=== PATIENT | male | born 1945 | race Caucasian/White ===

== ENCOUNTER → 2017-01-04 20:03 | Outpatient (CLI) | payer MEDICARE, OTHER ==
[2011-12-14 16:02] VITALS: BMI 23.1
== END | disposition home or self-care (01) ==
LOC: D.MAMMO 10:30
DX: N63 Unspecified lump in breast (principal)

== ENCOUNTER 2018-02-08 07:41 | Outpatient (CLI) | payer MEDICARE, OTHER ==
[~2018-02-08] VITALS: Ht 172.7 cm; Wt 71.1 kg
--- NOTE | ~2018-02-08 | OP ---
PATIENT NAME: CHI NOVA MEDICAL RECORD: [id number] :43 LOCATION:D.M2 D.2119 ADMISSION DATE: SURGEON: LASHELL CRAWFORD MD DATE OF OPERATION: 02/08/2018 DATE OF SERVICE: 02/08/2018 PROCEDURES: 1. PTCA stent of RCA. 2. Intravascular ultrasound of RCA. 3. Left heart catheterization. 4. Selective coronary angiography. 5. Left ventriculogram. INDICATION: Angina and coronary artery disease. PROCEDURE PERFORMED: After informed consent was obtained and after the detailed description of risks, benefits as well as alternative therapies, the patient elected to proceed with angiogram and angioplasty. The right radial area was prepped and draped in normal sterile fashion. Right radial artery was cannulated via modified Seldinger technique with placement of 6-Romanian sheath. All catheters exchanged through this sheath. FINDINGS: The left ventriculogram was performed in standard 30-degree JIMENEZ view, reveals good cardiac wall motion throughout all segments. Overall ejection fraction is estimated at 60%. SELECTIVE CORONARY ANGIOGRAPHY: 1. Left main showed no significant angiographic disease. 2. Left anterior descending has mild irregularities, but no flow-limiting stenosis. 3. The left circumflex has mild irregularities, but no flow-limiting stenosis. 4. Right coronary has greater than 80% stenosis in the mid vessel confirmed by intravascular ultrasound. PTCA STENT OF THE RIGHT CORONARY: The stent used 3.5 x 26 mm Integrity. Result was 0% residual stenosis. OVERALL IMPRESSION: Successful percutaneous transluminal coronary angioplasty stent of the right coronary artery going from greater than 80% initial stenosis to 0% residual. TRANSINT:[id number] Voice Confirmation ID: [id number] DOCUMENT ID: [id number] LASHELL CRAWFORD MD at 2002 CC: [id number] DICTATION DATE: 02/08/18 1131 YARD ASSOCIATE: 02/08/18 [address] [place] [address]
--- NOTE | ~2018-02-08 | DS ---
PATIENT:CHI NOVA :43 MEDICAL RECORD: [id number] DISCHARGE SUMMARY ADMISSION DATE: 02/08/18 DISCHARGE DATE: 02/09/18 DISCHARGE DIAGNOSES: 1. Angina. 2. Coronary artery disease. 3. Percutaneous transluminal coronary angioplasty stent right coronary artery this admission. HOSPITAL COURSE: Mr. Nova presents with anginal symptomatology, found to have single vessel disease of the RCA, underwent successful PTCA stent of the RCA. He was discharged home with the addition of aspirin and Plavix to his medication and follow up with [facility] in 1 month. TRANSINT:[id number] Voice Confirmation ID: [id number] DOCUMENT ID: [id number] LASHELL CRAWFORD MD at 1741 CC: [id number] DICTATION DATE: 02/09/18937 REGENERATOR OPERATOR: 02/09/18 1348 DEP CLI 02/09/18 [address] [place] [address]
--- NOTE | ~2018-02-08 | HEMODYNAMI ---
PATIENT:CHI NOVA MEDICAL RECORD: [id number] : 43 LOCATION:[facility] ADMISSION DATE: 02/08/18 Generatedon:02/08/201811:34 Patient name: CHI NOVA Patient #: [id number] SSN: : 1945 Date of study: 02/08/2018 Page: Of Hemodynamic Procedure Report Patient Data Patient Demographics Procedure consent was obtained First Name: CHI Gender: Male Last Name: ROHINI : 1945 Middle Initial: M Age: 72 year(s) Patient #: [id number] Race: Unknown Additional ID: [id number] Contact details [address]: [address] [place] [address] State: [place] City: [place] Zip code: [address] Admission Admission Data Admission Date: 02/08/2018 Admission Time: 7:41 Procedure Procedure Types Cath Procedure Diagnostic Procedure LHC LHC w/Coronaries FFR/IVUS Intra-Coronary IVUS Initial Sedation Charges Moderate Sedation up to 15 minutes PCI Procedure Coronary Stent Coronary Stent Initial Procedure Description Procedure Date Procedure Date: 02/08/2018 Procedure Start Time: 11:04 Procedure End Time: 11:27 Procedure Staff Name Function Rogers Tovar MD Performing Physician Josefina Bowman RT Monitor Scott Shannon RT Scrub Dena Alonso RN Nurse Procedure Data Cath Procedure Fluoroscopy Diagnostic fluoroscopy Total fluoroscopy Time: 6.3 time: 6.3 min min Diagnostic fluoroscopy Total fluoroscopy dose: 532 dose: 532 mGy mGy Contrast Material Contrast Material Type Amount (ml) Isovue 300 82 Entry Location Entry Primary Successful Side Size Upsize Upsize Entry Closure Jones ccessful Closure Location (Fr) 1 (Fr) 2 (Fr) Remarks Device Remarks Radial Right 6 Fr Mechanical artery Short Compression Estimated blood loss: 5 ml Diagnostic catheters Device Type Used For End Catheter Placement DIAGNOSTIC Hollis 110cm 5 Multi-vessel Fr catheter ([id number]) Angiography DIAGNOSTIC AR 2 MOD 5 Fr Right Coronary catheter ([id number]) Angiography Procedure Complications No complications Procedure Medications Medication Administration Route Dosage Oxygen NC 2 l/min Lidocaine 2% added to field 20 Heparin Flush Bag added to field 2 bags (1000units/500ml NS) 0.9% NaCl I.V. 100 ml/hr Versed I.V. 1 mg Fentanyl I.V. 50 mcg Radial Cocktail I.A. 1 syringe (Verapomil 2mg/Nitro 400mcg/Heparin 1500units) Versed I.V. 1 mg Fentanyl I.V. 50 mcg Versed I.V. 1 mg Fentanyl I.V. 50 mcg Heparin Bolus I.V. 4000 units Integrilin (Bolus I.V. 6.8 ml 2mg/ml) Plavix P.O. 600 mg Hemodynamics Rest Heart Rate: 66 (bpm) Pressure Samples Time Site Value (mmHg) Purpose Heart Use Rate(bpm) 11:13 LV 108/62,86 Snapshot 83 Snapshots Pre Cath Intra NCS Post Cath Vital Signs Time Heart Resp SPO2 etCO2 NIBP (mmHg) Rhythm Pain Sedation Rate (ipm) (%) (mmHg) Status Level (bpm) 10:56:28 73 17 95 0 147/93(120) NSR 0 (11) 10(A) , No pain 11:00:24 63 17 93 0 138/78(109) NSR 0 (11) 10(A) , No pain 11:04:21 63 15 92 0 117/70(98) NSR 0 (11) 10(A) , No pain 11:08:44 61 15 96 9.7 129/76(104) NSR 0 (11) 9(A) , No pain 11:12:41 65 13 96 0 102/64(77) NSR 0 (11) 9(A) , No pain 11:16:37 65 13 93 0 103/60(79) NSR 0 (11) 9(A) , No pain 11:20:57 69 12 95 11.9 114/64(90) NSR 0 (11) 9(A) , No pain 11:25:19 68 14 95 33.7 126/71(95) NSR 0 (11) 10(A) , No pain Medications Time Medication Route Dose Verified Delivered Reason Note s Effectiveness by by 11:02:29 Oxygen NC 2 l/min Rogers Fernandes used for Guy Alonso outside plant technician 11:02:35 Lidocaine 2% added 20ml Rogers Fernandes used for to vial Guy Alonso RN procedure field 11:02:41 Heparin Flush added 2 bags Rogers Fernandes for local Bag to Guy Alonso RN anesthetic (1000units/500ml field NS) 11:02:49 0.9% NaCl I.V. 100 Rogers Fernandes Per physician ml/hr Guy Alonso RN 11:03:05 Versed I.V. 1 mg Rogers Fernandes for sedation Guy Alonso RN 11:03:11 Fentanyl I.V. 50 mcg Rogers Fernandes for sedation Guy Alonso RN 11:07:03 Radial Cocktail I.A. 1 Rogers Mccloud for (Verapomil syringe Guy Tovar MD vasodilation 2mg/Nitro 400mcg/Heparin 1500units) 11:11:21 Versed I.V. 1 mg Rogers Mccloud for sedation Guy Tovar MD 11:11:24 Fentanyl I.V. 50 mcg Rogers Mccloud for sedation Guy Tovar MD 11:19:33 Versed I.V. 1 mg Rogers Mccloud for sedation Guy Tovar MD 11:19:36 Fentanyl I.V. 50 mcg Rogers Mccloud for sedation Guy Tovar MD 11:22:13 Heparin Bolus I.V. 4000 Rogers Fernandes for veri fied units Guy Alonso RN anticoagulation with dr tovar 11:24:04 Integrilin I.V. 6.8 ml Rogers Fernandes for wast ed (Bolus 2mg/ml) Guy Alonso RN antiplatelet 3.2 ml therapy of vial 11:28:27 Plavix P.O. 600 mg Rogers Fernandes for Guy Alonso RN antiplatelet therapy Procedure Log Time Note 10:30:48 Dena Alonso RN sent for patient. Start room use. 10:43:26 Informed consent obtained and on chart 10:43:30 Diagnostic Cath Status : Elective 10:43:49 Time tracking: Regular hours (M-F 7:00 - 5:00) 10:43:53 Plan of Care:Hemodynamics will remain stable., Cardiac rhythm will remain stable., Comfort level will be maintained., Respiratory function will remain adequate., Patient/ family verbilizes understanding of procedure., Procedure tolerated without complication., Recovers from procedure without complications.. 10:55:36 Patient received from Pre/Post Procedure Room to CCL 2 Alert and oriented. Tansferred to table in Supine position. 10:55:38 Warm blankets applied, and ines hugger turned on for patient comfort. 10:55:38 Correct patient and procedure confirmed by team. 10:55:40 ECG and BP/O2 sat monitors applied to patient. 10:55:42 Vital chart was started 10:55:46 Baseline sample Acquired. 10:55:51 Rhythm: sinus rhythm 10:55:52 Full Disclosure recording started 10:55:57 H&P Date Dictated: 02/08/2018 Within 30 days and on chart., H&P Addendum completed by physician on day of procedure. (MUST COMPLETE FOR ALL OUTPATIENTS). 10:55:58 Pre-procedure instructions explained to patient. 10:55:59 Pre-op teaching completed and patient verbalized understanding. 10:56:00 Family in waiting room. 10:56:01 Patient NPO since Midnight. 10:56:02 Is the patient allergic to Iodine/contrast media? No. 10:56:03 Was the patient premedicated? No 10:56:04 Is patient on blood thinner?No 10:56:06 Patient diabetic? No. 10:56:09 Previous problem with sedation/anesthesia? No ? 10:56:10 Snore? No 10:56:11 Sleep apnea? No 10:56:12 Deviated septum? No 10:56:13 Opens mouth fully? No 10:56:14 Sticks out tongue? Yes 10:56:21 Airway obstruction? No ? 10:56:23 Dentures? No ? 10:56:27 Pre procedure: right dorsailis pedis pulse 2+ Normal; easily identifiable; not easily obliterated 10:56:30 Pre procedure: left dorsailis pedis pulse 2+ Normal; easily identifiable; not easily obliterated 10:56:32 Patient pain scale 0/10 ?. 10:56:39 IV patent on arrival in left forearm with 0.9% NaCl at O. 10:56:45 Lab results completed and on chart. 10:56:54 Right Radial & Right Groin area was prepped with chlora-prep and draped in sterile fashion 10:56:55 Alarms reviewed by R. N. 10:56:55 Sharps counted by scrub and verified by R.N. 10:57:03 Physician arrived 10:57:03 --------ALL STOP TIME OUT------ 10:57:04 Final Timeout: patient, procedure, and site verified with staff and physician. All members of the team are in agreement. 10:57:05 Right Radial & Right Groin site verified by team. 10:57:07 Physical assessment completed. ASA score P 2 - A patient with mild systemic disease as per Rogers Tovar MD. 10:57:11 Sedation plan: IV Moderate Sedation Medication:Versed, Fentanyl 10:58:58 Use device set Radial Dx or PCI 10:58:59 ACIST Syringe (44180) opened to sterile field. 10:58:59 Medline Cath Pack ([id number]) opened to sterile field. 10:59:00 Bag Decanter (2002S) opened to sterile field. 10:59:00 DIAGNOSTIC WIRE .035 260cm J wire (369734) opened to sterile field. 10:59:01 ACIST Hand Control (47147) opened to sterile field. 10:59:01 ACIST Manifold (48702) opened to sterile field. 10:59:02 Tegaderm 4 x 4 (1626W) opened to sterile field. 10:59:04 MBrace Wrist Support (686659432) opened to sterile field. 10:59:05 SHEATH 6Fr Prelude Radial ([id number]) opened to sterile field. 11:02:29 Oxygen 2 l/min NC was administered by Dena Alonso RN; used for procedure; 11:02:35 Lidocaine 2% 20ml vial added to field was administered by Dena Alonso RN; used for procedure; 11:02:41 Heparin Flush Bag (1000units/500ml NS) 2 bags added to field was administered by Dena Alonso RN; for local anesthetic; 11:02:49 0.9% NaCl 100 ml/hr I.V. was administered by Dena Alonso RN; Per physician; 11:03:05 Versed 1 mg I.V. was administered by Dena Alonso RN; for sedation; 11:03:11 Fentanyl 50 mcg I.V. was administered by Dena Alonso RN; for sedation; 11:04:42 Procedure started. 11:04:51 Local anesthetic to right radial artery with Lidocaine 2% by Rogers Tovar MD.INITIAL ACCESS ONLY 11:05:00 A 6 Fr Short sheath was inserted into the Right Radial artery 11:07:03 Radial Cocktail (Verapomil 2mg/Nitro 400mcg/Heparin 1500units) 1 syringe I.A. was administered by Rogers Tovar MD; for vasodilation; 11:09:48 A DIAGNOSTIC Hollis 110cm 5 Fr catheter (909733) was advanced over the wire and used for Multi-vessel Angiography. 11:11:21 Versed 1 mg I.V. was administered by Rogers Tovar MD; for sedation; 11:11:24 Fentanyl 50 mcg I.V. was administered by Rogers Tovar MD; for sedation; 11:13:27 LV hemodynamics recorded. 11:13:28 LV gram done using JIMENEZ 11:13:31 Injector settings: Ml/sec: 5, Volume: 15, 11:13:46 EF : 60 % 11:15:34 Catheter removed. 11:15:38 A DIAGNOSTIC AR 2 MOD 5 Fr catheter ([id number]) was advanced over the wire and used for Right Coronary Angiography. 11:15:50 RCA angiography performed. 11:15:53 Injector settings: Ml/sec: 3, Volume: 6, 11:15:55 Catheter removed. 11:16:06 GUIDE 6FR EBU 3.5 catheter ([id number]) opened to sterile field. 11:16:11 LCA angiography performed. 11:16:14 Injector settings: Ml/sec: 3, Volume: 6, 11:18:03 Catheter removed. 11:18:05 Proceeding to intervention. 11:18:17 GUIDE 6FR AR 2.0 catheter ([id number]) opened to sterile field. 11:18:20 INFLATOR Merit BasixCompak (UK7457) opened to sterile field. 11:18:34 Timblin [place] IVUS Catheter (47996B) opened to sterile field. 11:18:34 CHOICE PT Extra Support 182cm wire ([id number]) opened to sterile field. 11:18:42 6 Fr ar 2 guide catheter was inserted over the wire 11:18:46 choice pt wire advanced. 11:19:33 Versed 1 mg I.V. was administered by Rogers Tovar MD; for sedation; 11:19:36 Fentanyl 50 mcg I.V. was administered by Rogers Tovar MD; for sedation; 11:19:36 Wire advanced across lesion. 11:19:41 IVUS catheter advanced over wire. 11:22:13 Heparin Bolus 4000 units I.V. was administered by Dena Alonso RN; for anticoagulation; verified with dr tovar 11:23:28 IVUS pass to RCA lesion performed. 11::29 IVUS catheter removed over wire. 11:24:03 Place stent Inflation Number: 1 A INTEGRITY RX 3.5 x 26 stent ([id number]) was prepped and advanced across the Mid RCA. The stent was deployed at 15 BECK for 0:10 (min:sec). 11:24:04 Integrilin (Bolus 2mg/ml) 6.8 ml I.V. was administered by Dena Alonso RN; for antiplatelet therapy; wasted 3.2 ml of vial 11:24:17 Stent catheter was removed intact over wire. 11:24:18 Wire removed. 11:24:18 Guide catheter removed. 11:24:24 TR BAND Standard ([id number]) opened to sterile field. 11:26:06 Sheath removed intact; hemostasis achieved with Mechanical Compression to the Right Radial artery. 11:26:08 Procedure ended.(Physican Out) 11:26:18 Fluoroscopy time 06.30 minutes. 11:26:22 Fluoroscopy dose: 532 mGy 11::22 Flurop Dose total: 532 11::40 Contrast amount:Isovue 300 82ml. 11:26:51 TR band inflated with 10cc of air. 11:26:54 Insertion/operative site no bleeding no hematoma. 11:27:00 Post right radial artery:stable 11:27:01 Post Procedure Pulses reassessed and unchanged 11:27:04 Post procedure rhythm: unchanged. 11:27:06 Estimated blood loss: 5 ml 11:27:08 Post procedure instruction explained to patient.Patient verbalizes understanding. 11:27:08 Patient needs reinforcement of post procedure teaching. 11:27:26 Procedure type changed to Cath procedure, Diagnostic procedure, LHC, [facility] w/Coronaries, FFR/IVUS, Intra-Coronary IVUS Initial, Sedation Charges, Moderate Sedation up to 15 minutes, PCI procedure, Coronary Stent, Coronary Stent Initial 11::27 Procedure and supply charges have been captured, reviewed, submitted and are correct. 11:27:31 Procedure Complication : No complications 11::33 Vital chart was stopped 11::33 See physician's report for complete and final results. 11:27:38 Report given to Pre/Post Procedure Room. 11::41 Patient transfered to Pre/Post Procedure Room with Stretcher. 11:27:49 Procedure ended. 11::49 Full Disclosure recording stopped 11::27 Plavix 600 mg P.O. was administered by Dena Alonso RN; for antiplatelet therapy; 11:28:47 ACC-PCI Only Patient was given prescriptions, or instructed by Rogers Tovar MD to start/continue the following medications upon discharge: Plavix 11:28:48 End room use (Document Last) Intervention Summary Intervention Notes Time ActionType Lesion and Equipment Action# Pressure Duration Attributes Used 11:24:03 Place stent Mid RCA INTEGRITY RX 1 15 00:10 3.5 x 26 stent ([id number]) Device Usage Item Name Manufacture Quantity Catalog Number Hospital Part Current M inimal Lot# / Charge Number Stock Stock Serial# Code ACIST Syringe Acist 1 93606 596204 191504 272579 2 0 (77794) Medical Systems Inc Medline Cath Cardinal 1 [id number] 956403 02622 830105 5 Pack Health (HYJH26452) Bag Decanter Microtek 1 2001S 696637 33341 194053 5 (2001S) Medical Inc. DIAGNOSTIC WIRE St [place] 1 894569 539096 790963 462977 3 0 .035 260cm J wire (809299) ACIST Hand Acist 1 11099 388488 576550 415059 5 Control (93540) Medical Systems Inc ACIST Manifold Acist 1 54537 908049 972162 385131 5 (04771) Medical Systems Inc Tegaderm 4 x 4 3M 1 1626W 306937 649150 109513 5 (1626W) MBrace Wrist Advanced 1 140-0250-00 546002 08324 476624 5 Support Vascular (164219131) Dynamics SHEATH 6Fr Merit 1 [id number] 512550 171656 149362 5 Prelude Radial Medical ([id number]) DIAGNOSTIC Terumo 1 40-5340 919154 826895 920112 5 Hollis 110cm 5 Fr catheter (904191) DIAGNOSTIC AR 2 Cardinal 1 150561H 712878 029132 305296 2 0 MOD 5 Fr Health catheter (162265L) GUIDE 6FR EBU Medtronic 1 [id number] 624583 27100 421114 3 3.5 catheter (RT6JHE89) GUIDE 6FR AR Medtronic 1 AD7SN17 344591 13552 901873 1 2.0 catheter (CU4ER01) INFLATOR Merit Merit 1 ON8136 509319 348270 508153 1 5 [place] [employer] Inc. Medical (EQ1057) Timblin Timblin 1 43434Y 456294 019535 349906 8 [place] IVUS Catheter (35236S) CHOICE PT Extra Tutor Key 1 [id number] 262540 281367 410527 5 Support 182cm Scientific wire ([id number]) INTEGRITY RX Medtronic 1 [id number] 359353 030342 616774 5 [id number] 3.5 x 26 stent ([id number]) TR BAND Terumo 1 AXW30-IUK 547163 008280 208015 4 0 Standard (BCX54OGA) Signature Audit [place] Stage Time Signature Unsigned Intra-Procedure 02/08/2018 Josefina Bowman 11:34:45 AM RT(R) Signatures Monitor : Josefina Bowman RT Signature : Date : Time : [address] [place] [address]
[2018-02-08] MEDS ORDERED: CARTIA XT180 MG PO (08:21)
[2018-02-08] MEDS ORDERED: FLOMAX0.4 MG PO (08:22)
[2018-02-08] MEDS ORDERED: NITROQUICK0.4 MG SL (08:22)
[2018-02-08] MEDS ORDERED: TENORMIN50 MG PO (08:23)
[2018-02-08] MEDS ORDERED: LIPITOR10 MG PO (08:23)
[2018-02-08 08:45] VITALS: BP 167/86; BMI 25.6
[2018-02-08 09:03] LABS: BASOPHILS 0 % (0-2); EOSINOPHILS 1.2 % (0-7); HEMATOCRIT 35.7 % (42.0-54.0); HEMOGLOBIN 11.9 g/dL (13.5-17.5); IMMATURE GRANULOCYTES 0.4 % (0-5); LYMPHOCYTES 11.3 % (15-50); MCH 32.5 pg (26.0-34.0); MCHC 33.3 g/dL (31.0-37.0); MCV 97.5 fL (80.0-100.0); MEAN PLATELET VOLUME 8.4 fL (7.4-10.4); MONOCYTES 9.2 % (2-11); NEUTROPHILS 77.9 % (40-80); PLATELET COUNT 177 10x3/uL (130-400); RBC 3.66 10x6/uL (4.20-6.10); RDW 13.4 % (11.5-14.5); WBC 5.7 10x3/uL (4.8-10.8)
[2018-02-08 09:25] LABS: CALC OSMOLALITY 273 mosm/kg (275-300); CALCIUM 8.7 mg/dL (8.5-10.1); CARBON DIOXIDE 25.6 mmol/L (21.0-32.0); CHLORIDE - SERUM 101 mmol/L (98-107); CREATININE - SERUM 0.8 mg/dL (0.6-1.3); GLUCOSE 84 mg/dL (74-106); POTASSIUM - SERUM 4.6 mmol/L (3.5-5.1); SODIUM 138 mmol/L (136-145); UREA NITROGEN 11 mg/dL (7-18); eGFR NON AFRICAN AMERICAN > 90 mL/min (90-120)
[2018-02-08 12:02] VITALS: BP 151/75; Ht 172.7 cm; Wt 71.1 kg
[2018-02-08 15:38] VITALS: BP 123/65
[2018-02-08 20:33] VITALS: BP 150/83
[2018-02-09 00:46] VITALS: BP 126/84
[2018-02-09 05:43] VITALS: BP 161/79
[2018-02-09 08:49] VITALS: BP 167/89
== END 2018-02-09 14:22 | disposition home or self-care (01) ==
LOC: D.CATH 07:41 → D.M2 11:39 → D.CATH 02-09 14:22
PROVIDERS: Internal Medicine Interventional Cardiology
DX: I25.119 Atherosclerotic heart disease of native coronary artery with unspecified angina pectoris (principal); Z01.812 Encounter for preprocedural laboratory examination

== ENCOUNTER 2020-12-05 10:26 | Inpatient (IN) | payer MEDICARE, OTHER ==
[~2020-12-05] VITALS: Ht 172.7 cm; Wt 59.0 kg
[~2020-12-05 10:26] MED LIST: CARTIA XT180 MG PO; FLOMAX0.4 MG PO; LIPITOR10 MG PO; NITROQUICK0.4 MG SL; TENORMIN50 MG PO
[2020-12-05] MEDS ORDERED: EZFE 200200 MG PO (10:38)
[2020-12-05] MEDS ORDERED: VITAMIN B-12500 MCG PO (10:38)
[2020-12-05] MEDS ORDERED: PROTONIX20 MG PO (10:38)
[2020-12-05 11:20] LABS: BASOPHILS 0.1 % (0-2); EOSINOPHILS 0.2 % (0-7); HEMATOCRIT 25.7 % (42.0-54.0); IMMATURE GRANULOCYTES 0.1 % (0-5); LYMPHOCYTES 6.3 % (15-50); MCHC 31.1 g/dL (31.0-37.0); MCV 96.3 fL (80.0-100.0); MEAN PLATELET VOLUME 8.3 fL (7.4-10.4); MONOCYTES 5.6 % (2-11); NEUTROPHIL ABS# 8.36 10x3/uL (1.78-5.38); NEUTROPHILS 87.7 % (40-80); RBC 2.67 10x6/uL (4.20-6.10); RDW 17.8 % (11.5-14.5); WBC 9.5 10x3/uL (4.8-10.8)
[2020-12-05 11:21] LABS: PLATELET COUNT 262 10x3/uL (130-400)
[2020-12-05 11:43] LABS: APTT 40.6 SECONDS (22.8-39.4); INR 1.32 (0.85-1.17); PROTIME 15.1 SECONDS (11.6-15.0)
[2020-12-05 11:46] LABS: CALC OSMOLALITY 272 mosm/kg (275-300); CARBON DIOXIDE 31.1 mmol/L (21.0-32.0); CHLORIDE - SERUM 96 mmol/L (98-107); CREATININE - SERUM 0.9 mg/dL (0.6-1.3); GLUCOSE 101 mg/dL (74-106); POTASSIUM - SERUM 3.3 mmol/L (3.5-5.1); SODIUM 135 mmol/L (136-145); UREA NITROGEN 20 mg/dL (7-18); eGFR NON AFRICAN AMERICAN 87 mL/min (90-120)
[2020-12-05 12:03] LABS: ALBUMIN 2.3 g/dL (3.4-5.0); ALKALINE PHOSPHATASE 71 U/L (30-120); ALT (SGPT) 60 U/L (10-68); BILIRUBIN - TOTAL 0.65 mg/dL (0.2-1.3); CKMB 0.3 U/L (0.0-3.6); CREATINE KINASE 47 UL (21-232); PROTEIN - SERUM 7.3 g/dL (6.4-8.2); TROPONIN-I < 0.017 ng/mL (0.000-0.060)
[2020-12-05 13:28] VITALS: BP 112/66
[2020-12-05 15:07] VITALS: BP 118/68; BMI 19.8
--- NOTE | 2020-12-05 15:15 | NUR ---
PATIENT TO UNIT VIA WHEELCHAIR. SISTER AT BEDSIDE. PATIENT ON 2 LITERS NASAL CANNULA. [place] ALARM ON. ANSWERS QUESTIONS APPROPRIATELY. BED LOW POSITION, CALL LIGHT IN REACH. WILL CONTINUE TO MONITOR.
--- NOTE | 2020-12-05 15:36 | NUR ---
SPOKE TO DR. GONZALEZ ABOUT MEDICATION RECONCILLIATION BEING COMPLETED.
[2020-12-05 17:43] VITALS: BP 89/49
--- NOTE | 2020-12-06 01:00 | NUR ---
PT UNABLE TO VOID. STATES HE HASN'T VOIDED SINCE [employer] SUPERVIS[employer]. PT TAKES TAMSULOSIN AT HOME BUT HAS NOT HAD IT TODAY. BLADDER SCAN SHOWED 400+. CALLED DR. GONZALEZ. ORDER TO RESTART TAMSULOSIN, INSERT SANTIAGO CATHETER AND COLLECT URINE UA/CULTURE. PT VOIDED 250 MLS IN URINAL BEFORE SANTIAGO INSERTION. SCANNED BLADDER POST VOID FOR 401 MLS RESIDUAL LEFT IN BLADDER. PLACED SANTIAGO CATHETER AND RECEIVED 400 MLS SO FAR. COLLECTED SPECIMEN AND SENT TO LAB. PT TO START MEDS IN MORNING. NO OTHER NEEDS. WILL REASSESS AND CONTINUE TO MONITOR.
[2020-12-06 03:15] LABS: BILIRUBIN NEGATIVE (NEGATIVE); KETONE NEGATIVE (NEGATIVE); NITRITE NEGATIVE (NEGATIVE); UROBILINOGEN NORMAL mg/dL (< 2)
[2020-12-06 06:01] LABS: BASOPHILS 0 % (0-2); EOSINOPHILS 1.4 % (0-7); HEMATOCRIT 20.6 % (42.0-54.0); IMMATURE GRANULOCYTES 0.2 % (0-5); LYMPHOCYTE ABS# 0.38 10x3/uL (1.32-3.57); LYMPHOCYTES 6.7 % (15-50); MCH 29.8 pg (26.0-34.0); MCHC 31.1 g/dL (31.0-37.0); MCV 95.8 fL (80.0-100.0); MONOCYTES 5.7 % (2-11); NEUTROPHIL ABS# 4.86 10x3/uL (1.78-5.38); RBC 2.15 10x6/uL (4.20-6.10); RDW 17.6 % (11.5-14.5)
[2020-12-06 06:10] LABS: HEMOGLOBIN 6.4 g/dL (13.5-17.5); PLATELET COUNT 208 10x3/uL (130-400); WBC 5.7 10x3/uL (4.8-10.8)
[2020-12-06 06:33] LABS: ALBUMIN 1.8 g/dL (3.4-5.0); ALKALINE PHOSPHATASE 58 U/L (30-120); ALT (SGPT) 71 U/L (10-68); BILIRUBIN - TOTAL 0.27 mg/dL (0.2-1.3); CALCIUM 7.8 mg/dL (8.5-10.1); CHLORIDE - SERUM 103 mmol/L (98-107); GLUCOSE 111 mg/dL (74-106); SODIUM 137 mmol/L (136-145)
[2020-12-06 06:54] LABS: CALC OSMOLALITY 273 mosm/kg (275-300); CREATININE - SERUM 0.6 mg/dL (0.6-1.3); POTASSIUM - SERUM 3.9 mmol/L (3.5-5.1); PROTEIN - SERUM 5.2 g/dL (6.4-8.2); UREA NITROGEN 10 mg/dL (7-18); eGFR NON AFRICAN AMERICAN > 90 mL/min (90-120)
--- NOTE | 2020-12-06 07:00 | NUR ---
CALLED CRITICAL [facility] [address] GONZALEZ. ORDERED 1 UNIT PRBC'S TO BE TRANSFUSED. ONCOLOGY CONSULTED - DR. WOOTEN ROUNDED THIS AM.
[2020-12-06 08:52] VITALS: BP 123/73
--- NOTE | 2020-12-06 08:59 | NUR ---
PT IS AAO X 4 AND ANSWERS ALL QUESTIONS APPROPRIATLEY. PT INFORMED ON BLOOD/BLOOD PRODUCTS AND DENIES FURTHER QUESTIONS/CONCERNS AT THIS TIME. BLOOD CONSENT SIGNED BY PATIENT AND PLACED IN PT CHART. BED IS IN THE LOWEST POSITION. CALL LIGHT AND BEDSIDE TABLE ARE WITHIN REACH. SIDE RAILS X 2. WILL NOTIFY SHIFT NURSE.
--- NOTE | 2020-12-06 10:15 | NUR ---
PT RESTING QUIETLY IN BED. RESP EVEN AND UNLABORED. DENIES PAIN AT THIS TIME. IV TO RIGHT WRIST WITH D51/2 NS W/ 20KCL @ 100ML/HR INFUSING VIA PUMP. SITE WITHOUT REDNESS OR EDEMA. F/C PATENT TO GRAVITY DRAINING CLEAR YELLOW URINE. DENIES FURTHER NEEDS AT THIS TIME. CL WITHIN REACH. CONTINUE POC. STRICT NPO FOR ASPIRATION PRECAUTIONS
--- NOTE | 2020-12-06 10:25 | NUR ---
UNIT (1) OF PRBC TRANSFUSION INITIATED. SIGNED BLOOD CONSENT IN PT CHART. VSS. SEE TRANSFUSION CARD. PRBC INFUSING TO RIGHT WRIST PIV WITHOUT DIFFICUTLY/COMPROMISE. PT DENIES FURTHER QUESTIONS/CONCERNS/NEEDS. WILL STAY IN ROOM FOR FIRST 15 MINUTES OF TRANSFUSION TO MONITOR CLOSELY. FALL PRECAUTIONS IN PLACE. BED IS IN THE LOWEST POSITION. CALL LIGHT AND BEDSIDE TABLE ARE WITHIN REACH. SIDE RAILS X 2. PRBC UNIT VERIFIED WITH JAKE RODRIGUES RN.
--- NOTE | 2020-12-06 10:40 | NUR ---
UNIT (1) [RBC INFUSING WITHOUT DIFFICULTY/COMPROMISE. VSS. SEE TRANSFUSION CARD. NO APPARENT S/S OF DISTRESS NOTED. PT DENIES PRESENCE OF N/V/DYSPNEA/SOB AT THIS TIME. ALL FALL PRECAUTIONS IN PLACE. BED IS IN THE LOWEST POSITION. CALL LIGHT AND BEDSIDE TABLE ARE WITHIN REACH. SIDE RAILS X 2. PT DENIES FURTHER NEEDS. WILL NOTIFY SHIFT NURSE.
[2020-12-06 12:48] VITALS: BP 124/71
--- NOTE | 2020-12-06 13:39 | HP ---
PATIENT: [facility] MEDICAL RECORD: [id number] ACCOUNT: [id number] LOCATION:D.[id number] : 43 ADMISSION DATE: 12/05/20 PCP: KENN HARRIS MD HISTORY AND PHYSICAL EXAMINATION REASON FOR ADMISSION: Cough, congestion, trouble swallowing. HISTORY OF PRESENT ILLNESS: The patient is a 75-year-old male who was diagnosed in June 2020 with right-sided throat cancer. He was biopsied by Dr. Hilario Turner in [place] and underwent chemotherapy and just finished 35 treatments of radiation therapy with Dr. Rosas at [facility]. His sister, who is his current chest painting leader states he has been having increasing trouble with copious amount of mucus that he is coughing and making difficult for him to swallow. He has lost about 12 pounds since radiation was initiated. He began coughing more and came to the ED. He said Dr. Turner had recommended that he have a G-tube placed preradiation, but the radiation therapy physician advised against it. Nonetheless, he is not handling his fluids well, coughing quite a bit, and came to the ED where he was found to be mildly tachypneic with a pO2 of 93, CO2 of 37, pH of 7.537. He has not had fever, but his chest x-ray does show left lower lobe infiltrate versus atelectasis and scarring in the left upper lobe. He is admitted at this time. PAST MEDICAL HISTORY: Coronary artery disease, followed by Dr. Tovar. He has had PTCA in the past, history of esophageal stricture plus recent dilatation by Dr. Arteaga and negative biopsies. Colonoscopy in 2016 showing diverticula and 2 small polyps that were benign. BPH, probable COPD from smoking, carotid artery disease, asymptomatic hypertension, hyperlipidemia, cancer of the throat as mentioned above. SURGICAL HISTORY: He had biopsy of his throat mass. He has had a cataract surgery in 2013, history of hernia repair, tonsillectomy remotely. FAMILY HISTORY: Father of bone cancer. Mother of colon and breast cancer and had melanoma as well. 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 He smoked 20+ years, 1 pack a day and had moderate alcohol consumption, none recently. ALLERGIES: TO QUINAPRIL CAUSING ANGIOEDEMA. CURRENT MEDICATIONS: Tamsulosin 0.4 mg daily, atorvastatin 10 mg at bedtime, ondansetron 4 mg p.o. q.4 hours for nausea, diltiazem ER 180 mg SR tablet daily, Wellbutrin SR 150 mg b.i.d., tramadol 50 mg q.6 hours p.r.n. pain, Nitrostat 0.4 sublingual p.r.n. chest pain, aspirin 81 mg daily, Protonix 20 mg p.o. daily. REVIEW OF SYSTEMS: GENERAL: He has been fatigued since chemo and radiation therapy, he has lost about 12 pounds. Denies fever. HEENT: No recent visual change, sinus congestion. He has intermittent sore throat and trouble handling a large amount of mucus. He is producing post-radiation. Mild hearing difficulty. RESPIRATORY: He has had increased shortness of breath for the last couple of days with increasing cough. Denies hemoptysis. CARDIAC: No palpitations, PND, orthopnea, or chest pain. HISTORY AND PHYSICAL [id number] [facility] GASTROINTESTINAL: He has intermittent nausea and no recent vomiting, although does expectorate quite a bit of mucus throughout the day. Denies change in stools or blood per rectum. Had colonoscopy as mentioned above and recent EGD. GENITOURINARY: He has nocturia twice nightly. ENDOCRINE: Denies polyuria, polydipsia, heat or cold intolerance. NEUROLOGIC: No history of stroke, TIA, vascular headaches or seizures. PSYCHIATRIC: Denies depressed mood. INTEGUMENT: No recent rash or itching. PHYSICAL EXAMINATION: VITAL SIGNS: Temperature 97 Fahrenheit orally; pulse 82 and regular; respirations were 20; blood pressure initially was 81/52, it is now 112/56 with a sat of 98% on 2 liters. GENERAL: The patient is mildly cachectic. HEENT: Shows normal male pattern balding. His eyes were clear. Palpebral conjunctiva is pale. Oropharynx shows mild erythema posteriorly on the right. NECK: No masses are felt. CHEST: Distant breath sounds without wheeze or rales. He is constantly coughing, however. HEART: Regular rate without murmur. Carotids faint bruits bilaterally. ABDOMEN: Soft, nontender, no organomegaly. GENITOURINARY: Deferred. EXTREMITIES: No CC&E. INTEGUMENT: No icterus or petechiae. NEUROLOGIC: Oriented time 4. Cranial nerves intact. Gait is evaluation. Although, he does show some quads weakness. PSYCHIATRIC: Denies depressed mood or suicidal ideation. LABORATORY DATA: H&H is 8 and 25.7, his hemoglobin in June was 11 and hematocrit was 33. White count was 9500, platelet count is 262,000 with a left shift. Chemistry: Potassium is low at 3.3. BUN and creatinine are normal. Lactate is 1.6. Liver functions are normal. Cardiac enzymes are negative. Albumin is low at 2.3. Blood gas; pH 7.537, pCO2 of 38, pO2 of 93 on 2 liters. Urine is pending. DIAGNOSTIC DATA: Chest x-ray shows scarring in the left upper lobe, patchy left lower basilar airspace disease noted. ASSESSMENT: 1. Possible aspiration pneumonia. 2. 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 3. Hypokalemia due to gastrointestinal losses. 4. Malnutrition. 5. Weight loss. 6. Hypertension, currently hypotensive, hyperlipidemia, history of MAGGIE intolerance, history of remote nicotine abuse, probable chronic obstructive pulmonary disease, and benign prostatic hyperplasia. 7. Anemia. PLAN: The patient will be admitted n.p.o., placed on broad-spectrum IV antibiotics. We will obtain swallow evaluation. The patient will most likely need PEG tube until his post-radiation therapy swallowing issues resolve. His sister who is going to have to go back to [facility] for about a month and he will need rehabilitation in the interim with hopes to get admitted to HISTORY AND PHYSICAL [id number] [facility] re[facility] once he is over his acute admission until they can return home to care for him. We will transfuse if indicated. We will have hematology/oncology consultation with his oncologist, Dr. Donald Beckman. TRANSINT:[id number] Voice Confirmation ID: [id number] DOCUMENT ID: [id number] CECE GONZALEZ MD at 1339 CC: [id number] DICTATION DATE: 12/05/20 1413 SCIENCES DEAN: 12/05/20 1528 ADM IN [place] [id number] [place] [address]
[2020-12-06 13:57] VITALS: Ht 172.7 cm; Wt 59.0 kg
[2020-12-06 16:51] VITALS: BP 131/76
[2020-12-06 20:00] VITALS: BP 144/77
[2020-12-07] VITALS: BP 137/76
[2020-12-07 04:00] VITALS: BP 132/73
--- NOTE | 2020-12-07 06:42 | NUR ---
PATIENT TOLERATED THE LAST UNIT OF BLLOD WELL, HE APPEARED TO SLEEP THROUGH THE NIGHT.
[2020-12-07 07:12] LABS: BASOPHILS 0 % (0-2); EOSINOPHILS 2.1 % (0-7); IMMATURE GRANULOCYTES 0.4 % (0-5); LYMPHOCYTE ABS# 0.32 10x3/uL (1.32-3.57); LYMPHOCYTES 6.6 % (15-50); MCH 29.1 pg (26.0-34.0); MCHC 32.3 g/dL (31.0-37.0); MEAN PLATELET VOLUME 8.5 fL (7.4-10.4); MONOCYTES 10.6 % (2-11); NEUTROPHIL ABS# 3.87 10x3/uL (1.78-5.38); NEUTROPHILS 80.3 % (40-80); PLATELET COUNT 233 10x3/uL (130-400); WBC 4.8 10x3/uL (4.8-10.8)
[2020-12-07 07:20] LABS: CALC OSMOLALITY 264 mosm/kg (275-300); CALCIUM 8.2 mg/dL (8.5-10.1); CARBON DIOXIDE 24.6 mmol/L (21.0-32.0); CHLORIDE - SERUM 101 mmol/L (98-107); CREATININE - SERUM 0.5 mg/dL (0.6-1.3); GLUCOSE 88 mg/dL (74-106); SODIUM 134 mmol/L (136-145); eGFR NON AFRICAN AMERICAN > 90 mL/min (90-120)
[2020-12-07 07:22] LABS: HEMATOCRIT 28.2 % (42.0-54.0); HEMOGLOBIN 9.1 g/dL (13.5-17.5); MCV 90.1 fL (80.0-100.0); RBC 3.13 10x6/uL (4.20-6.10)
[2020-12-07 07:24] LABS: UREA NITROGEN 7 mg/dL (7-18)
--- NOTE | 2020-12-07 08:28 | NUR ---
PT RESTING QUIETLY IN BED. RESP EVEN AND UNLABORED. O2 @ 2L NC IN PLACE. PT DENIES PAIN AT THIS TIME. IV TO RIGHT FOREARM WITH D5 1/2NS W/ 20KCL @ 100ML/H INFUSING VIA PUMP. SITE WITHOUT REDNESS OR EDEMA. F/C PATENT TO GRAVITY. DENIES FURTHER NEEDS AT THIS TIME. CL WITHIN REACH. ENCOURAGED TO CALL WITH NEEDS. CONTINUE POC
[2020-12-07 09:03] VITALS: BP 140/79
[2020-12-07 14:12] VITALS: BP 134/75
[2020-12-07 17:56] VITALS: BP 133/76
[2020-12-07 20:00] VITALS: BP 120/76
[2020-12-08 04:00] VITALS: BP 134/89
--- NOTE | 2020-12-08 04:32 | NUR ---
PATIENT HAS SLEPT MOST OF THE SHIFT, HE DENIED PAIN, HE REMAINS NPO. HE IS CURRENTLY RESTIN IN BED WITH HIS EYES CLOSED.
[2020-12-08 07:19] LABS: BASOPHILS 0.2 % (0-2); EOSINOPHILS 1.2 % (0-7); HEMATOCRIT 29.9 % (42.0-54.0); HEMOGLOBIN 9.6 g/dL (13.5-17.5); IMMATURE GRANULOCYTES 0.2 % (0-5); LYMPHOCYTE ABS# 0.47 10x3/uL (1.32-3.57); LYMPHOCYTES 11.5 % (15-50); MCH 29.5 pg (26.0-34.0); MCHC 32.1 g/dL (31.0-37.0); MEAN PLATELET VOLUME 8.4 fL (7.4-10.4); MONOCYTES 8.1 % (2-11); NEUTROPHILS 78.8 % (40-80); PLATELET COUNT 218 10x3/uL (130-400); RBC 3.25 10x6/uL (4.20-6.10); RDW 17.6 % (11.5-14.5); WBC 4.1 10x3/uL (4.8-10.8)
--- NOTE | 2020-12-08 07:30 | NUR ---
RECIEVED BEDSIDE REPORT. BED LOW POSITION, CALL LIGHT IN REACH. FREE FROM SIGNS OF DISTRESS. WILL CONTINUE TO MONITOR.
[2020-12-08 07:39] LABS: CALC OSMOLALITY 266 mosm/kg (275-300); CALCIUM 8.6 mg/dL (8.5-10.1); CHLORIDE - SERUM 102 mmol/L (98-107); CREATININE - SERUM 0.5 mg/dL (0.6-1.3); GLUCOSE 111 mg/dL (74-106); POTASSIUM - SERUM 4.1 mmol/L (3.5-5.1); SODIUM 134 mmol/L (136-145); UREA NITROGEN 6 mg/dL (7-18); eGFR NON AFRICAN AMERICAN > 90 mL/min (90-120)
--- NOTE | 2020-12-08 08:22 | NUR ---
PATIENT LEFT UNIT VIA BED TO PROCEDURE AT THIS TIME.
[2020-12-08 13:28] VITALS: BP 135/85
[2020-12-08 17:47] VITALS: BP 116/79
[2020-12-08 20:00] VITALS: BP 119/71
--- NOTE | 2020-12-09 03:44 | NUR ---
PATIENT HAD PAIN MANAGED WITH THE PRESCRIBED PAIN MEDICATION, HE APPEARES TO BE RESTING COMFORTABLY WITH HIS EYES CLOSED.
[2020-12-09 04:00] VITALS: BP 127/73
[2020-12-09 06:49] LABS: ALBUMIN 1.9 g/dL (3.4-5.0); ALKALINE PHOSPHATASE 57 U/L (30-120); ALT (SGPT) 84 U/L (10-68); BILIRUBIN - TOTAL 0.36 mg/dL (0.2-1.3); CALC OSMOLALITY 264 mosm/kg (275-300); CALCIUM 8.1 mg/dL (8.5-10.1); CARBON DIOXIDE 17.8 mmol/L (21.0-32.0); CHLORIDE - SERUM 101 mmol/L (98-107); CREATININE - SERUM 0.5 mg/dL (0.6-1.3); GLUCOSE 101 mg/dL (74-106); POTASSIUM - SERUM 4.5 mmol/L (3.5-5.1); PROTEIN - SERUM 5.5 g/dL (6.4-8.2); SODIUM 134 mmol/L (136-145); UREA NITROGEN 5 mg/dL (7-18); eGFR NON AFRICAN AMERICAN > 90 mL/min (90-120)
--- NOTE | 2020-12-09 07:49 | NUR ---
RECIEVED BEDSIDE RPEORT. IN BED, AROUSES TO VOICE. DENIES NEEDS AT THIS TIME. BED LOW POSITION, CALL LIGHT IN REACH. BED ALARM ON, ORIANA ALARM ON. WILL CONTINUE TO MONITOR.
[2020-12-09 07:58] LABS: BASOPHILS 0.2 % (0-2); EOSINOPHILS 1.5 % (0-7); HEMATOCRIT 28.3 % (42.0-54.0); HEMOGLOBIN 9.1 g/dL (13.5-17.5); IMMATURE GRANULOCYTES 0.4 % (0-5); LYMPHOCYTES 10.8 % (15-50); MCH 29.3 pg (26.0-34.0); MCHC 32.2 g/dL (31.0-37.0); MEAN PLATELET VOLUME 8.6 fL (7.4-10.4); MONOCYTES 13.8 % (2-11); NEUTROPHILS 73.3 % (40-80); PLATELET COUNT 205 10x3/uL (130-400); RBC 3.11 10x6/uL (4.20-6.10); RDW 17.2 % (11.5-14.5); WBC 4.6 10x3/uL (4.8-10.8)
[2020-12-09 09:18] VITALS: BP 144/85
--- NOTE | 2020-12-09 12:00 | NUR ---
SANTIAGO CATHETER REMOVED PER MD ORDER.
[2020-12-09 12:37] VITALS: BP 132/84
--- NOTE | 2020-12-09 13:18 | NUR ---
Nutrition follow-up: Pt POD#1 of PEG placement Continues NPO Labs reviewed Wt: 129# Recommend starting Jevity 1.5 mark anthony @ 25 ml/hr with gradual increase to goal rate of 50 ml/hr with 30 ml H2O flush q hour. When pt is tolerating continuos TF at goal rate for 3-4 days, recommend changing to bolus feeds of 5 cartons per day (1 can q 3 hours during waking hours with 75 ml H2O flush before and after each can) Will place order for TF to start when consult is received. RDN follow-up: 12/10/20
[2020-12-09 16:46] VITALS: BP 120/77
[2020-12-09 20:00] VITALS: BP 122/87
[2020-12-10] VITALS: BP 129/69
--- NOTE | 2020-12-10 00:26 | NUR ---
PT ON SIDE OF THE BED HE REQUEST TO GET HELP TO THE BATHROOM AND HAS BEEN ASKING ABOUT WHY HE IS IN THE HOSPITAL. PT IS VERY CONFUSE TO TIME AND PLACE. PT WANTS TO GET HIS SON TO COME TO GET HIM AND TAKE HIM HOME HE WAS EXPLAINED THE SITUATION WITH LITTLE UNDERSTANDING. PT WILL CONT TO GET MONITORED.
--- NOTE | 2020-12-10 01:29 | NUR ---
PT UP ALARM IN PLACE PT REMOVE HIS IV ATTEMPT TO GET NEW PT REFUSE WILL TRY AGAIN IN A FEW HOURS.
[2020-12-10 04:00] VITALS: BP 130/76
[2020-12-10 06:04] LABS: BASOPHILS 0 % (0-2); HEMATOCRIT 30.1 % (42.0-54.0); HEMOGLOBIN 9.6 g/dL (13.5-17.5); IMMATURE GRANULOCYTES 0.7 % (0-5); LYMPHOCYTE ABS# 0.56 10x3/uL (1.32-3.57); MCH 29.4 pg (26.0-34.0); MCHC 31.9 g/dL (31.0-37.0); MCV 92.3 fL (80.0-100.0); MEAN PLATELET VOLUME 8.5 fL (7.4-10.4); MONOCYTES 10.6 % (2-11); NEUTROPHIL ABS# 3.14 10x3/uL (1.78-5.38); NEUTROPHILS 72.7 % (40-80); PLATELET COUNT 232 10x3/uL (130-400); RBC 3.26 10x6/uL (4.20-6.10); RDW 17.1 % (11.5-14.5); WBC 4.3 10x3/uL (4.8-10.8)
[2020-12-10 06:24] LABS: CALC OSMOLALITY 266 mosm/kg (275-300); CALCIUM 8.6 mg/dL (8.5-10.1); CHLORIDE - SERUM 101 mmol/L (98-107); CREATININE - SERUM 0.5 mg/dL (0.6-1.3); GLUCOSE 102 mg/dL (74-106); POTASSIUM - SERUM 4.4 mmol/L (3.5-5.1); SODIUM 135 mmol/L (136-145); UREA NITROGEN 4 mg/dL (7-18); eGFR NON AFRICAN AMERICAN > 90 mL/min (90-120)
[2020-12-10 06:36] LABS: CARBON DIOXIDE 23.6 mmol/L (21.0-32.0)
--- NOTE | 2020-12-10 07:02 | NUR ---
I have reviewed this patient and I concur with the Shift Assessment completed by the Licensed Practical Nurse today this shift.
--- NOTE | 2020-12-10 08:41 | NUR ---
Nutrition follow-up: PEG tube placed; verbal order to begin TF today received Last note recommended Jevity 1.5 mark anthony to begin; out of Jevity 1.5 mark anthony Starting Jevity 1.2 mark anthony @ 25 ml/hr with gradual increase to goal rate of 65 ml/hr with 30 ml H2O flush q hour. HOB > 30 degrees. Jevity 1.2 mark anthony @ 65 ml/hr with provide: 1872 kcal, 87 gm protein, 1260 ml free H2O This TF regimen will meet 100% of pts estimated nutritional needs. RDN will follow-up: 12/13/20
--- NOTE | 2020-12-10 08:45 | NUR ---
ASSESSMENT PER FLOW SHEET. PATIENT IS WITHOUT DISTRESS. TUBE FEEDINGS JEVITY 1.2 STARTED AT 25 CC/HR WITH 30CC WATER FLUSH Q1 HOUR AT 0830. FALL PREVENTION IN PLACE WITH ROIANA AND BED ALARM.CALL LIGHT IN REACH.
[2020-12-10 09:41] VITALS: BP 136/80
--- NOTE | 2020-12-10 09:45 | MORECARE ---
CASE MANAGEMENT DISCHARGE SUMMARY PATIENT: [facility] UNIT: [id number] ADM DATE: 12/05/20 AGE: 75 : 44 SEX: M ROOM/BED: D.2230 AUTHOR: DEBRA MONROY PHYSICIAN: REFERRING PHYSICIAN: CECE GONZALEZ MD DATE OF SERVICE: 12/10/20 Case Management Discharge Planning Summary DCP REVIEW SUMMARY ANTICIPATED D/C DATE: EXPECTED LOS : CASE STATUS: DCP Initiated INITIAL REVIEW: 12/05/2020 INITIAL REVIEWER: Lis Tang FINAL DISCHARGE DISPOSITION: 03 : Discharged/Trans to SNF with Medicare Certification in Anticipation of Skilled Care FINAL REVIEWER: FINAL REVIEW DATE: DCP Focus Questions & Answers DCP Screen QUESTION: ANSWER High Risk Factors: : Hosp related to CHF, COPD, DM, End Stage Ds, CVA, CA DCP Evaluation QUESTION: ANSWER Patient's ability to cope with chronic illness : a. Adequate (0-3 ED visits in 6 mos., adequate financial resources, attends scheduled appts.) Patient and/or caregiver agree upon recommended discharge plan? : Yes Patient's current cognitive status: : *Oriented to person, place, situation, time and present Patient gives permission to discuss discharge plans with: (name, relationship and number) : HENRIQUE COATES [phone] Does the patient have the ability to pay for or attain post discharge needs / services? : Yes Functional screen assessment: : New onset in difficulty in gait, balance, or transfer difficulties Family / Caregiver's ability to cope with chronic illness: : a. Adequate (ability to meet patient's medical needs, ensures patient attends medical appts.) Physical Status: : Independent with ADL's Equipment needed for post hospitalization: : Peg Tube feeding/maintenance Is there a likelihood that the patient will require additional services to return to the preadmission environment? : Yes Functional screen comments: : NEW PEG TUBE Living Arrangements: : Home Alone with Support Results of this evaluation have been discussed with: : Patient Patient with capacity for self-care or can be cared for in same environment as prior to hospitalization? : No Baseline cognitive status: : *Oriented to person, place, situation, time and present Comments: : WANTS TO GO TO [facility] Medication Management: : Patient states can afford medications Planned post hospital services available for patient? : Yes Pharmacy name(s): : [facility] Planned post hospital services covered by insurance plan? : Yes Does Patient have transportation to get home and to follow-up medical appointments when discharged from the hospital? : Yes Would patient like to participate in any Care Coordination programs (if applicable): : Not applicable Does the patient have electricity at home? : Yes Does the patient have running water in their house? : Yes Equipment in use: : Cane - Single Leg Equipment agency name and contact information: : [facility] [phone] Mental health screen: : No mental health history Abuse/Neglect: : None DCP Re-evaluation QUESTION: ANSWER Would patient like to participate in any Care Coordination programs (if applicable): : Not applicable PATIENT: [facility] ENCOUNTER: [id number] MEDICAL RECORD#: [id number] ADMISSION DATE: 12/05/2020 DISCHARGE DATE: ATTENDING MD: CECE ARMANDO : AGE: 75 MARITAL STATUS: S DC PLAN ID: [id number] FACILITY: [facility] PRINTED ON: 12/10/20 9:45 CT All edits/amendments must be made on the electronic document DICTATION DATE: 12/10/20944 DIESEL ENGINE MECHANIC APPRENTICE: LIMA 12/10/20944 RPT#: [id number] DC DATE: STATUS: ADM IN [facility] [address] [place] [address] END OF REPORT
--- NOTE | 2020-12-10 09:56 | MORECARE ---
CASE MANAGEMENT DISCHARGE SUMMARY PATIENT: [facility] UNIT: [id number] ADM DATE: 12/05/20 AGE: 75 : 44 SEX: M ROOM/BED: D.2230 AUTHOR: DEBRA MONROY PHYSICIAN: REFERRING PHYSICIAN: CECE GONZALEZ MD DATE OF SERVICE: 12/10/20 Case Management Discharge Planning Summary COMMENTS ENTERED DATE: 12/10/20 9:43 CT COMMENT TYPE: Discharge Planning REVIEWER: Lis Tang CM met with patient to complete initial dc planning assessment. CM educated patient on the CM role and verbal consent given by patient to complete assessment. Patient lives at home by himself where he is independent with his care. At discharge patient plans to return home when he is able and feels this is a safe discharge. He would like go to [facility] for senior living. I have sent the referral there . He is a new PEG tube with feeds. He has a cane at home. He is a patient of Dr Harper. and uses [facility]. JESSICA signed. Patient denied known discharge needs at this time. CM will continue to follow and will assist as needed with dc plans/needs. DCP REVIEW SUMMARY ANTICIPATED D/C DATE: EXPECTED LOS : CASE STATUS: DCP Initiated INITIAL REVIEW: 12/05/2020 INITIAL REVIEWER: Lis Tang FINAL DISCHARGE DISPOSITION: 03 : Discharged/Trans to SNF with Medicare Certification in Anticipation of Skilled Care FINAL REVIEWER: FINAL REVIEW DATE: DCP Focus Questions & Answers DCP Screen QUESTION: ANSWER High Risk Factors: : Hosp related to CHF, COPD, DM, End Stage Ds, CVA, CA DCP Evaluation QUESTION: ANSWER Patient's ability to cope with chronic illness : a. Adequate (0-3 ED visits in 6 mos., adequate financial resources, attends scheduled appts.) Patient and/or caregiver agree upon recommended discharge plan? : Yes Patient's current cognitive status: : *Oriented to person, place, situation, time and present Patient gives permission to discuss discharge plans with: (name, relationship and number) : HENRIQUE COATES [phone] Does the patient have the ability to pay for or attain post discharge needs / services? : Yes Functional screen assessment: : New onset in difficulty in gait, balance, or transfer difficulties Family / Caregiver's ability to cope with chronic illness: : a. Adequate (ability to meet patient's medical needs, ensures patient attends medical appts.) Physical Status: : Independent with ADL's Equipment needed for post hospitalization: : Peg Tube feeding/maintenance Is there a likelihood that the patient will require additional services to return to the preadmission environment? : Yes Functional screen comments: : NEW PEG TUBE Living Arrangements: : Home Alone with Support Results of this evaluation have been discussed with: : Patient Patient with capacity for self-care or can be cared for in same environment as prior to hospitalization? : No Baseline cognitive status: : *Oriented to person, place, situation, time and present Comments: : [facility] Medication Management: : Patient states can afford medications Planned post hospital services available for patient? : Yes Pharmacy name(s): : [facility] Planned post hospital services covered by insurance plan? : Yes Does Patient have transportation to get home and to follow-up medical appointments when discharged from the hospital? : Yes Would patient like to participate in any Care Coordination programs (if applicable): : Not applicable Does the patient have electricity at home? : Yes Does the patient have running water in their house? : Yes Equipment in use: : Cane - Single Leg Equipment agency name and contact information: : HENRIQUE COATES [phone] Mental health screen: : No mental health history Abuse/Neglect: : None DCP Re-evaluation QUESTION: ANSWER Would patient like to participate in any Care Coordination programs (if applicable): : Not applicable PATIENT: [facility] ENCOUNTER: [id number] MEDICAL RECORD#: [id number] ADMISSION DATE: 12/05/2020 DISCHARGE DATE: ATTENDING MD: CECE ARMANDO : AGE: 75 MARITAL STATUS: S DC PLAN ID: [id number] FACILITY: [facility] PRINTED ON: 12/10/20 9:55 CT All edits/amendments must be made on the electronic document DICTATION DATE: 12/10/20954 WINERY WORKER: LIMA 12/10/20954 RPT#: [id number] DC DATE: STATUS: ADM IN [facility] [address] [place] [address] END OF REPORT
[2020-12-10 12:58] VITALS: BP 115/78
--- NOTE | 2020-12-10 14:16 | NUR ---
tube feeds increased to 35cc /hr.
[2020-12-10 17:29] VITALS: BP 123/85
--- NOTE | 2020-12-10 18:04 | NUR ---
PATIENT REMAINS WITHOUT CHANGE. TOLERATING JEVITY FEEDING. HE IS WITHOUT DISTRESS.CONT PLAN OF CARE
[2020-12-10 21:12] VITALS: BP 129/83
[2020-12-11 01:14] VITALS: BP 108/66
[2020-12-11 05:56] VITALS: BP 118/68
[2020-12-11 06:22] LABS: BASOPHILS 0.3 % (0-2); HEMATOCRIT 27.8 % (42.0-54.0); HEMOGLOBIN 8.8 g/dL (13.5-17.5); IMMATURE GRANULOCYTES 0.3 % (0-5); LYMPHOCYTE ABS# 0.66 10x3/uL (1.32-3.57); LYMPHOCYTES 18.1 % (15-50); MCH 29.2 pg (26.0-34.0); MCHC 31.7 g/dL (31.0-37.0); MCV 92.4 fL (80.0-100.0); MEAN PLATELET VOLUME 8.5 fL (7.4-10.4); MONOCYTES 9.9 % (2-11); NEUTROPHIL ABS# 2.49 10x3/uL (1.78-5.38); NEUTROPHILS 68.4 % (40-80); PLATELET COUNT 225 10x3/uL (130-400); RBC 3.01 10x6/uL (4.20-6.10); RDW 17.2 % (11.5-14.5); WBC 3.6 10x3/uL (4.8-10.8)
[2020-12-11 06:36] LABS: CALC OSMOLALITY 268 mosm/kg (275-300); CALCIUM 8.8 mg/dL (8.5-10.1); CARBON DIOXIDE 25.1 mmol/L (21.0-32.0); CHLORIDE - SERUM 102 mmol/L (98-107); CREATININE - SERUM 0.6 mg/dL (0.6-1.3); GLUCOSE 112 mg/dL (74-106); POTASSIUM - SERUM 4.3 mmol/L (3.5-5.1); SODIUM 135 mmol/L (136-145); UREA NITROGEN 7 mg/dL (7-18); eGFR NON AFRICAN AMERICAN > 90 mL/min (90-120)
[2020-12-11 09:55] VITALS: BP 111/66
--- NOTE | 2020-12-11 10:13 | NUR ---
PEG RESIDUAL CHECKED AND FOUND TO BE 160 ML. THIS AMOUNT RE-INSERTED INTO PEG TUBE, TUBE FEEDING STOPPED AT THIS TIME. WILL RECHECK RESIDUAL. PIV INFILTRATED. REMOVED PIV. WILL REPLACE PIV.
[2020-12-11 12:56] VITALS: BP 109/68
[2020-12-11 20:52] VITALS: BP 132/79
--- NOTE | 2020-12-12 03:40 | NUR ---
CHANGED TUBE FEEDING BAGS. RESIDUAL CHECKED 100+ - STOPPED TUBE FEEDING. PULLED PT UP IN BED AND RAISED TO 30 DEGREES. RECHECKED RESIDUAL AT 0730 WAS 10 ML. RESTARTED FEEDING AT 55 ML/HR.
[2020-12-12 05:25] VITALS: BP 133/80
[2020-12-12 06:40] LABS: BASOPHILS 0 % (0-2); EOSINOPHILS 3.3 % (0-7); IMMATURE GRANULOCYTES 0.3 % (0-5); LYMPHOCYTE ABS# 0.61 10x3/uL (1.32-3.57); LYMPHOCYTES 15.6 % (15-50); MCH 29.4 pg (26.0-34.0); MCHC 32.1 g/dL (31.0-37.0); MCV 91.5 fL (80.0-100.0); MEAN PLATELET VOLUME 8.4 fL (7.4-10.4); MONOCYTES 9.2 % (2-11); NEUTROPHILS 71.6 % (40-80); PLATELET COUNT 217 10x3/uL (130-400); RBC 3.06 10x6/uL (4.20-6.10); RDW 17.1 % (11.5-14.5); WBC 3.9 10x3/uL (4.8-10.8)
[2020-12-12 07:15] LABS: CALC OSMOLALITY 268 mosm/kg (275-300); CALCIUM 9.1 mg/dL (8.5-10.1); CARBON DIOXIDE 26.3 mmol/L (21.0-32.0); CHLORIDE - SERUM 101 mmol/L (98-107); CREATININE - SERUM 0.6 mg/dL (0.6-1.3); GLUCOSE 115 mg/dL (74-106); POTASSIUM - SERUM 4.5 mmol/L (3.5-5.1); SODIUM 135 mmol/L (136-145); UREA NITROGEN 8 mg/dL (7-18); eGFR NON AFRICAN AMERICAN > 90 mL/min (90-120)
[2020-12-12 11:28] VITALS: BP 122/64
--- NOTE | 2020-12-12 14:45 | NUR ---
checked patient residual and got over 120cc out. stopped feedings for now, emptied 500 out of patient urinal, no needs voiced, continue with plan of care
[2020-12-12 16:00] VITALS: BP 127/78
--- NOTE | 2020-12-12 17:18 | NUR ---
I have reviewed this patient and I concur with the Shift Assessment completed by the Licensed Practical Nurse today this shift.
[2020-12-12 18:48] VITALS: BP 153/76
--- NOTE | 2020-12-12 19:30 | NUR ---
RECEIVED REPORT, ASSUMED CARE, CALL LIGHT IN REACH, BREATHING SHALLOW, DENIES NEEDS, SCD'S ON, FEEDINGS OFF WILL CHECK RESIDUALS @2100, ENCOURAGED PT TO NOTIFY STAFF OF ANY NEEDS
--- NOTE | 2020-12-13 08:13 | NUR ---
PATIENT ASLEEP ON LEFT SIDE EASILY AWAKENED. TUBE FEEDINGS HAVE BEEN HALTED DUE TO FEAR OF ASPIRATION, PATIENT IS HAVING REFLUX AND HAD BEEN THROWING UP LAST NIGHT. RESIDUAL STILL HIGH, PATIENT HAS NOT HAD A BOWEL MOVEMENT, WILL NEED REGIMEN WHEN DOCTOR COMES IN. PATIENT STATED HE HAS RECEIVED COVID VACCINES BOTH DOSES. NO OTHER NEEDS AT THIS TIME. CONTINUE WITH PLAN OF CARE
[2020-12-13 09:33] VITALS: BP 108/63
--- NOTE | 2020-12-13 11:22 | NUR ---
PATIENT WAS GIVEN M.OM THIS MORNING AND HE NEEDED TO USE THE URINAL, STEPPED AWAY WHILE PATIENT USED URINAL AND PATIENT DID NOT TAKE M.O.M UNTIL I CAME BACK IN TO CHECK ON HIM. AFVISED PATIENT WILL WILL CHECK BACK IN A FEW HOURS TO SEE IF HE HAS GONE. PATIENT STATES HE HAS NOT HAD A BM IN 10 DAYS. CONTINUE WITH PLAN OF CARE
[2020-12-13 13:56] VITALS: BP 108/75
--- NOTE | 2020-12-13 13:57 | NUR ---
ADMINISTERED SUPPOSITORY PER DR'S ORDER, ATMAURICE HAD NOT HAD A BM AFTER M.O.M INSTRUCTED PATIENT TO CALL ME WHEN HE FEELS THE URGE. NO OTHER NEEDS AT THIS TIME. CONTINUE WITH PLAN OF CARE
--- NOTE | 2020-12-13 15:06 | NUR ---
Nutrition follow-up: Pt continues NPO; PEG tube place and Jevity 1.2 mark anthony supposed to be infusing at goal rate of 65 ml/hr TF off due to nausea, vomiting Pt reports no BM x 10 days. Labs reviewed Pt receiving MOM; TF off until +BM Wt: 129# If TF unable to restart within 24 hours recommend starting ProcalAmine PPN @ 50 ml/hr RDN follow-up: 12/15/20
--- NOTE | 2020-12-13 15:10 | NUR ---
PATIENT WAS ABLE TO HAVE A BOWEL MOVEMENT. MEDIUM SIZE DARK GRRN BM SEEN IN TOILET. PATIENT STATES HE FEELS MUCH BETTER. WILL RESTART FEEDINGS. CONTIINUE WITH PLAN OF CARE
[2020-12-13 17:05] VITALS: BP 104/72
--- NOTE | 2020-12-13 17:07 | NUR ---
CHECKED PATIENT RESIDUAL AND HAD 0ML, EXPLAINED TO PATIENT THAT WE WILL START SLOW AT 30 AND INCREASE 10ML Q6 AFTER CHECKING RESIDUAL TO SEE HOW PATIENT TOLERATES. PATIENT AGREEABLE. CONTINUE WITH PLAN OF CARE
[2020-12-13 20:00] VITALS: BP 83/41
[2020-12-14] VITALS: BP 109/77
[2020-12-14 04:00] VITALS: BP 92/61
--- NOTE | 2020-12-14 07:51 | NUR ---
PATIENT LAYING ON LEFT SIDE, STATED HE HAD 2 BOWEL MOVEMENTS LAST NIGHT. NO SIGNS OF DISTRESS, NO NEEDS VOICED. CONTINUE WITH PLAN OF CARE
[2020-12-14 08:02] VITALS: BP 96/58
--- NOTE | 2020-12-14 10:30 | NUR ---
PATIENT IN SHOWER AND AFTER REPLACEING SHOWER HANDLE, HANDLE WAS NOT SECURELY IN PLACE AND FELL ON TOP OF PATENTS HEAD CAUSING A KNOT, PATIENTS STATES ITS NOT TOO BAD BUT DOESNT FEEL GOOD EITHER. COMPPLETEING CSTARS WELL CALLING DOCTOR. CONTINUE WITH PLAN OF CARE
--- NOTE | 2020-12-14 10:38 | NUR ---
SPOKE TO DR HAMMONDS IN REGARDS TO INCIDENT, PATIENT IS ALERT, PUPILS ARE EQUAL AND REACTIVE TO LIGHT. CAN FOLOW DIRECTIONS, NO OTHER NEEDS AT THIS TIME. CONTINUE WITH PLAN OF CARE
[2020-12-14 13:19] VITALS: BP 108/73
[2020-12-14] MEDS ORDERED: CEFUROXIME500 MG PO (13:49)
--- NOTE | 2020-12-14 14:31 | MORECARE ---
CASE MANAGEMENT DISCHARGE SUMMARY PATIENT: CHI NOVA UNIT: [id number] ADM DATE: 12/05/20 AGE: 75 : 44 SEX: M ROOM/BED: D.2230 AUTHOR: DEBRA MONROY PHYSICIAN: REFERRING PHYSICIAN: CECE GONZALEZ MD DATE OF SERVICE: 12/14/20 Case Management Discharge Planning Summary COMMENTS ENTERED DATE: 12/14/20 14:23 CT COMMENT TYPE: Discharge Planning REVIEWER: Lis Tang PATIENT IS DISCHARGING TO [facility] IN A REHAB/ SKILLED BED IMM SERVED AND EXPLAINED I CALLED AND SPOKE WITH KIANA HIS EMERGENCY CONTACT TO LET HER KNOW ABOUT HIM DISCHARGE HE WILL BE GOING TO A SKILLED BED ENTERED DATE: 12/10/20 9:43 CT COMMENT TYPE: Discharge Planning REVIEWER: Lis Tang CM met with patient to complete initial dc planning assessment. CM educated patient on the CM role and verbal consent given by patient to complete assessment. Patient lives at home by himself where he is independent with his care. At discharge patient plans to return home when he is able and feels this is a safe discharge. He would like go to [place] to for usp. I have sent the referral there . He is a new PEG tube with feeds. He has a cane at home. He is a patient of Dr Mccall and uses [facility]'s 270. JESSICA signed. Patient denied known discharge needs at this time. CM will continue to follow and will assist as needed with dc plans/needs. DCP REVIEW SUMMARY ANTICIPATED D/C DATE: EXPECTED LOS : CASE STATUS: DCP Initiated INITIAL REVIEW: 12/05/2020 INITIAL REVIEWER: Lis Tang FINAL DISCHARGE DISPOSITION: 03 : Discharged/Trans to SNF with Medicare Certification in Anticipation of Skilled Care FINAL REVIEWER: FINAL REVIEW DATE: DCP Focus Questions & Answers DCP Screen QUESTION: ANSWER High Risk Factors: : Hosp related to CHF, COPD, DM, End Stage Ds, CVA, CA DCP Evaluation QUESTION: ANSWER Patient gives permission to discuss discharge plans with: (name, relationship and number) : HENRIQUE COATES [phone] Patient's ability to cope with chronic illness : a. Adequate (0-3 ED visits in 6 mos., adequate financial resources, attends scheduled appts.) Patient's current cognitive status: : *Oriented to person, place, situation, time and present Patient and/or caregiver agree upon recommended discharge plan? : Yes Physical Status: : Independent with ADL's Family / Caregiver's ability to cope with chronic illness: : a. Adequate (ability to meet patient's medical needs, ensures patient attends medical appts.) Functional screen assessment: : New onset in difficulty in gait, balance, or transfer difficulties Does the patient have the ability to pay for or attain post discharge needs / services? : Yes Living Arrangements: : Home Alone with Support Is there a likelihood that the patient will require additional services to return to the preadmission environment? : Yes Equipment needed for post hospitalization: : Peg Tube feeding/maintenance Functional screen comments: : NEW PEG TUBE Baseline cognitive status: : *Oriented to person, place, situation, time and present Patient with capacity for self-care or can be cared for in same environment as prior to hospitalization? : No Results of this evaluation have been discussed with: : Patient Comments: : WANTS TO GO TO [facility] Medication Management: : Patient states can afford medications [facility] Planned post hospital services available for patient? : Yes Does Patient have transportation to get home and to follow-up medical appointments when discharged from the hospital? : Yes Planned post hospital services covered by insurance plan? : Yes Would patient like to participate in any Care Coordination programs (if applicable): : Not applicable Does the patient have electricity at home? : Yes Does the patient have running water in their house? : Yes Equipment in use: : Cane - Single Leg Equipment agency name and contact information: : HENRI[facility] COATES [phone] Mental health screen: : No mental health history Abuse/Neglect: : None DCP Re-evaluation QUESTION: ANSWER Would patient like to participate in any Care Coordination programs (if applicable): : Not applicable PATIENT: CHI NOVA ENCOUNTER: [id number] MEDICAL RECORD#: [id number] ADMISSION DATE: 12/05/2020 DISCHARGE DATE: ATTENDING MD: CECE ARMANDO : AGE: 75 MARITAL STATUS: S DC PLAN ID: [id number] FACILITY: [facility] PRINTED ON: 12/14/20 14:31 CT All edits/amendments must be made on the electronic document DICTATION DATE: 12/14/201430 ARM REST BUILDER: LIMA 12/14/201430 RPT#: [id number] DC DATE: STATUS: ADM IN [facility] [address] [place] [address] END OF REPORT
[2020-12-14] MEDS ORDERED: [UNRECOGNIZED DRUG - REMARK] (14:41)
--- NOTE | 2020-12-14 14:53 | NUR ---
CALLED REPORT TO GREY AT [facility], PATIENT IV REMOVED WITH CATHETER INTACT, NO CLOTHING FOUND OF PATIENTS, ONLY SLIPPERS. ALL QUESTIONS ANSWERED. PATIENT AWAITING TRANSPORT. CONTINUE WITH PLAN OF CARE
--- NOTE | 2020-12-14 15:32 | NUR ---
PATIENT PICKED UP BY TRANSPORT FROM [facility]. HAS BELONGIINGS WITH HIM, PAPEROWRK GIVEN TO [employer].
--- NOTE | 2020-12-15 10:22 | MORECARE ---
CASE MANAGEMENT DISCHARGE SUMMARY PATIENT: CHI NOVA UNIT: [id number] ADM DATE: 12/05/20 AGE: 75 : 44 SEX: M ROOM/BED: D.2230 AUTHOR: DEBRA MONROY PHYSICIAN: REFERRING PHYSICIAN: CECE GONZALEZ MD DATE OF SERVICE: 12/15/20 Case Management Discharge Planning Summary COMMENTS ENTERED DATE: 12/14/20 14:23 CT COMMENT TYPE: Discharge Planning REVIEWER: Lis Tang PATIENT IS DISCHARGING TO [facility] IN A REHAB/ SKILLED BED IMM SERVED AND EXPLAINED I CALLED AND SPOKE WITH KIANA HIS EMERGENCY CONTACT TO LET HER KNOW ABOUT HIM DISCHARGE HE WILL BE GOING TO A SKILLED BED ENTERED DATE: 12/10/20 9:43 CT COMMENT TYPE: Discharge Planning REVIEWER: Lis Tang CM met with patient to complete initial dc planning assessment. CM educated patient on the CM role and verbal consent given by patient to complete assessment. Patient lives at home by himself where he is independent with his care. At discharge patient plans to return home when he is able and feels this is a safe discharge. He would like go to [place] to for intermediate. I have sent the referral there . He is a new PEG tube with feeds. He has a cane at home. He is a patient of Dr Mccall and uses [facility]'s 270. EJSSICA signed. Patient denied known discharge needs at this time. CM will continue to follow and will assist as needed with dc plans/needs. DCP REVIEW SUMMARY ANTICIPATED D/C DATE: EXPECTED LOS : CASE STATUS: DCP Initiated INITIAL REVIEW: 12/05/2020 INITIAL REVIEWER: Lis Tang FINAL DISCHARGE DISPOSITION: 03 : Discharged/Trans to SNF with Medicare Certification in Anticipation of Skilled Care FINAL REVIEWER: FINAL REVIEW DATE: DCP Focus Questions & Answers DCP Screen QUESTION: ANSWER High Risk Factors: : Hosp related to CHF, COPD, DM, End Stage Ds, CVA, CA DCP Evaluation QUESTION: ANSWER Patient and/or caregiver agree upon recommended discharge plan? : Yes Patient's current cognitive status: : *Oriented to person, place, situation, time and present Patient's ability to cope with chronic illness : a. Adequate (0-3 ED visits in 6 mos., adequate financial resources, attends scheduled appts.) Patient gives permission to discuss discharge plans with: (name, relationship and number) : HENRIQUE COATES [phone] Does the patient have the ability to pay for or attain post discharge needs / services? : Yes Functional screen assessment: : New onset in difficulty in gait, balance, or transfer difficulties Family / Caregiver's ability to cope with chronic illness: : a. Adequate (ability to meet patient's medical needs, ensures patient attends medical appts.) Physical Status: : Independent with ADL's Functional screen comments: : NEW PEG TUBE Equipment needed for post hospitalization: : Peg Tube feeding/maintenance Is there a likelihood that the patient will require additional services to return to the preadmission environment? : Yes Living Arrangements: : Home Alone with Support Results of this evaluation have been discussed with: : Patient Patient with capacity for self-care or can be cared for in same environment as prior to hospitalization? : No Baseline cognitive status: : *Oriented to person, place, situation, time and present Comments: : WANTS TO GO TO [facility] Medication Management: : Patient states can afford medications Planned post hospital services available for patient? : Yes Pharmacy name(s): : [facility] Planned post hospital services covered by insurance plan? : Yes Does Patient have transportation to get home and to follow-up medical appointments when discharged from the hospital? : Yes Would patient like to participate in any Care Coordination programs (if applicable): : Not applicable Does the patient have electricity at home? : Yes Does the patient have running water in their house? : Yes Equipment in use: : Cane - Single Leg Equipment agency name and contact information: : [facility]ENRIQUE COATES [phone] Mental health screen: : No mental health history Abuse/Neglect: : None DCP Re-evaluation QUESTION: ANSWER Would patient like to participate in any Care Coordination programs (if applicable): : Not applicable PATIENT: CHI NOAV ENCOUNTER: [id number] MEDICAL RECORD#: [id number] ADMISSION DATE: 12/05/2020 DISCHARGE DATE: 12/14/2020 ATTENDING MD: CECE ARMANDO : AGE: 75 MARITAL STATUS: S DC PLAN ID: [id number] FACILITY: [facility] PRINTED ON: 12/15/20 9:25 CT All edits/amendments must be made on the electronic document DICTATION DATE: 12/15/20924 RAIL SIGNAL MECHANIC: LIMA 12/15/20924 RPT#: [id number] DC DATE:12/14/20 STATUS: DIS IN [facility] [address] [place] [address] END OF REPORT
--- NOTE | 2020-12-30 15:32 | MORECARE ---
CASE MANAGEMENT DISCHARGE SUMMARY PATIENT: CHI NOVA UNIT: [id number] ADM DATE: 12/05/20 AGE: 75 : 44 SEX: M ROOM/BED: D.2230 AUTHOR: DEBRA MONROY PHYSICIAN: REFERRING PHYSICIAN: CECE GONZALEZ MD DATE OF SERVICE: 12/30/20 Case Management Discharge Planning Summary COMMENTS ENTERED DATE: 12/14/20 14:23 CT COMMENT TYPE: Discharge Planning REVIEWER: Lis Tang PATIENT IS DISCHARGING TO [facility] IN A REHAB/ SKILLED BED IMM SERVED AND EXPLAINED I CALLED AND SPOKE WITH KIANA HIS EMERGENCY CONTACT TO LET HER KNOW ABOUT HIM DISCHARGE HE WILL BE GOING TO A SKILLED BED ENTERED DATE: 12/10/20 9:43 CT COMMENT TYPE: Discharge Planning REVIEWER: Lis Tang CM met with patient to complete initial dc planning assessment. CM educated patient on the CM role and verbal consent given by patient to complete assessment. Patient lives at home by himself where he is independent with his care. At discharge patient plans to return home when he is able and feels this is a safe discharge. He would like go to [place] to for halfway. I have sent the referral there . He is a new PEG tube with feeds. He has a cane at home. He is a patient of Dr Mccall and uses [facility]'s 270. JESSICA signed. Patient denied known discharge needs at this time. CM will continue to follow and will assist as needed with dc plans/needs. DCP REVIEW SUMMARY ANTICIPATED D/C DATE: EXPECTED LOS : CASE STATUS: DCP Initiated INITIAL REVIEW: 12/05/2020 INITIAL REVIEWER: Lis Tang FINAL DISCHARGE DISPOSITION: 03 : Discharged/Trans to SNF with Medicare Certification in Anticipation of Skilled Care FINAL REVIEWER: FINAL REVIEW DATE: DCP Focus Questions & Answers DCP Screen QUESTION: ANSWER High Risk Factors: : Hosp related to CHF, COPD, DM, End Stage Ds, CVA, CA DCP Evaluation QUESTION: ANSWER Patient's ability to cope with chronic illness : a. Adequate (0-3 ED visits in 6 mos., adequate financial resources, attends scheduled appts.) Patient and/or caregiver agree upon recommended discharge plan? : Yes Patient's current cognitive status: : *Oriented to person, place, situation, time and present Patient gives permission to discuss discharge plans with: (name, relationship and number) : HENRIQUE COATES [phone] Does the patient have the ability to pay for or attain post discharge needs / services? : Yes Functional screen assessment: : New onset in difficulty in gait, balance, or transfer difficulties Family / Caregiver's ability to cope with chronic illness: : a. Adequate (ability to meet patient's medical needs, ensures patient attends medical appts.) Physical Status: : Independent with ADL's Equipment needed for post hospitalization: : Peg Tube feeding/maintenance Is there a likelihood that the patient will require additional services to return to the preadmission environment? : Yes Functional screen comments: : NEW PEG TUBE Living Arrangements: : Home Alone with Support Results of this evaluation have been discussed with: : Patient Patient with capacity for self-care or can be cared for in same environment as prior to hospitalization? : No Baseline cognitive status: : *Oriented to person, place, situation, time and present Comments: : WANTS TO GO TO [facility] Medication Management: : Patient states can afford medications Planned post hospital services available for patient? : Yes Pharmacy name(s): : [facility] Planned post hospital services covered by insurance plan? : Yes Does Patient have transportation to get home and to follow-up medical appointments when discharged from the hospital? : Yes Would patient like to participate in any Care Coordination programs (if applicable): : Not applicable Does the patient have electricity at home? : Yes Does the patient have running water in their house? : Yes Equipment in use: : Cane - Single Leg Equipment agency name and contact information: : HENRIQUE COATES [phone] Mental health screen: : No mental health history Abuse/Neglect: : None DCP Re-evaluation QUESTION: ANSWER Would patient like to participate in any Care Coordination programs (if applicable): : Not applicable PATIENT: CHI NOVA ENCOUNTER: [id number] MEDICAL RECORD#: [id number] ADMISSION DATE: 12/05/2020 DISCHARGE DATE: 12/14/2020 ATTENDING MD: CECE ARMANDO : AGE: 75 MARITAL STATUS: S DC PLAN ID: [id number] FACILITY: [facility] PRINTED ON: 12/30/20 15:32 CT All edits/amendments must be made on the electronic document DICTATION DATE: 12/30/201531 TIRE BUILDER HEAVY SERVICE: LIMA 12/30/201531 RPT#: [id number] DC DATE:12/14/20 STATUS: DIS IN [facility] [address] [place] [address] END OF REPORT
== END 2020-12-14 15:35 | DRG 178 ==
LOC: D.ER 10:26 → D.MS 14:07
PROVIDERS: Family Medicine; Internal Medicine Medical Oncology; Surgery; ADMIT Family Medicine; ATTEND Family Medicine
PROC: 0DH63UZ Insertion of Feeding Device into Stomach, Percutaneous Approach (ICD-10-PCS; principal; 2020-12-08 08:33)
DX: J69.0 Pneumonitis due to inhalation of food and vomit (principal); R64 Cachexia; Z68.1 Body mass index [BMI] 19.9 or less, adult; E46 Unspecified protein-calorie malnutrition; C14.0 Malignant neoplasm of pharynx, unspecified; E87.6 Hypokalemia; D63.0 Anemia in neoplastic disease; E78.5 Hyperlipidemia, unspecified; I10 Essential (primary) hypertension; J44.9 Chronic obstructive pulmonary disease, unspecified; N40.0 Benign prostatic hyperplasia without lower urinary tract symptoms; E86.0 Dehydration; R13.10 Dysphagia, unspecified

== ENCOUNTER 2021-01-23 14:52 | Emergency (ER) | payer MEDICARE, OTHER ==
[~2021-01-23] VITALS: Ht 172.7 cm; Wt 60.0 kg
[~2021-01-23 14:52] MED LIST changes: +CEFUROXIME500 MG PO; +EZFE 200200 MG PO; +PROTONIX20 MG PO; +VITAMIN B-12500 MCG PO; +[UNRECOGNIZED DRUG - REMARK]
[2021-01-23 14:57] VITALS: Ht 172.7 cm; Wt 60.0 kg
[2021-01-23 18:44] LABS: BASOPHILS 0.1 % (0-2); EOSINOPHILS 1.8 % (0-7); HEMATOCRIT 30.8 % (42.0-54.0); IMMATURE GRANULOCYTES 0.1 % (0-5); LYMPHOCYTES 8.8 % (15-50); MCH 29.5 pg (26.0-34.0); MCHC 32.5 g/dL (31.0-37.0); MCV 90.9 fL (80.0-100.0); MEAN PLATELET VOLUME 8.2 fL (7.4-10.4); MONOCYTES 8.1 % (2-11); NEUTROPHIL ABS# 5.49 10x3/uL (1.78-5.38); NEUTROPHILS 81.1 % (40-80); PLATELET COUNT 279 10x3/uL (130-400); RBC 3.39 10x6/uL (4.20-6.10); RDW 16.4 % (11.5-14.5); WBC 6.8 10x3/uL (4.8-10.8)
[2021-01-23 18:53] LABS: ALKALINE PHOSPHATASE 71 U/L (30-120); ALT (SGPT) 28 U/L (10-68); BILIRUBIN - TOTAL 0.46 mg/dL (0.2-1.3); CALC OSMOLALITY 263 mosm/kg (275-300); CALCIUM 8.9 mg/dL (8.5-10.1); CHLORIDE - SERUM 95 mmol/L (98-107); CREATININE - SERUM 0.5 mg/dL (0.6-1.3); GLUCOSE 97 mg/dL (74-106); POTASSIUM - SERUM 4.6 mmol/L (3.5-5.1); PROTEIN - SERUM 6.9 g/dL (6.4-8.2); SODIUM 132 mmol/L (136-145); UREA NITROGEN 11 mg/dL (7-18); eGFR NON AFRICAN AMERICAN > 90 mL/min (90-120)
[2021-01-23 19:04] LABS: ALBUMIN 3.3 g/dL (3.4-5.0); CARBON DIOXIDE 28.8 mmol/L (21.0-32.0)
[2021-01-23 21:45] VITALS: BP 112/77
== END 2021-01-24 | disposition home or self-care (01) ==
LOC: D.ER 14:52
PROVIDERS: Family Medicine
DX: K94.23 Gastrostomy malfunction (principal); I10 Essential (primary) hypertension; J44.9 Chronic obstructive pulmonary disease, unspecified; K21.9 Gastro-esophageal reflux disease without esophagitis

== ENCOUNTER 2021-01-27 08:02 | Observation (INO) | payer MEDICARE, OTHER ==
[~2021-01-27] VITALS: Ht 172.7 cm; Wt 60.0 kg
[2021-01-27 08:05] VITALS: BP 140/87
[2021-01-27] MEDS ORDERED: COLACE100 MG PO (09:29)
[2021-01-27] MEDS ORDERED: PEPCID AC20 MG PO (09:30)
[2021-01-27] MEDS ORDERED: SENNA LAXATIVE8.6 MG PO (09:31)
[2021-01-27] MEDS ORDERED: CEPHALEXIN250 M1 PO (09:32)
[2021-01-27] MEDS ORDERED: MUCINEX600 MG PO (09:32)
[2021-01-27] MEDS ORDERED: ZOFRAN4 MG PO (09:33)
[2021-01-27] MEDS ORDERED: THERMOTABS 1 GM1 GM PO (09:34)
[2021-01-27] MEDS ORDERED: SILODOSIN PEG (09:34)
[2021-01-27] MEDS ORDERED: ULTRAM50 MG PO (09:35)
[2021-01-27 12:01] LABS: BASOPHILS 0.5 % (0-2); EOSINOPHILS 2.3 % (0-7); HEMATOCRIT 29.5 % (42.0-54.0); HEMOGLOBIN 9.8 g/dL (13.5-17.5); LYMPHOCYTES 14.2 % (15-50); MCHC 33.3 g/dL (31.0-37.0); MCV 90.3 fL (80.0-100.0); MEAN PLATELET VOLUME 6.1 fL (7.4-10.4); MONOCYTES 10.8 % (2-11); NEUTROPHILS 72.2 % (40-80); RBC 3.27 10x6/uL (4.20-6.10)
[2021-01-27 12:03] LABS: PLATELET COUNT 343 10x3/uL (130-400)
[2021-01-27 12:05] LABS: INR 1.23 (0.85-1.17); PROTIME 14.3 SECONDS (11.6-15.0)
[2021-01-27 12:09] LABS: CALC OSMOLALITY 262 mosm/kg (275-300); CALCIUM 9.1 mg/dL (8.5-10.1); CARBON DIOXIDE 28.3 mmol/L (21.0-32.0); CHLORIDE - SERUM 96 mmol/L (98-107); CREATININE - SERUM 0.8 mg/dL (0.6-1.3); GLUCOSE 85 mg/dL (74-106); POTASSIUM - SERUM 3.9 mmol/L (3.5-5.1); SODIUM 133 mmol/L (136-145); UREA NITROGEN 7 mg/dL (7-18); eGFR NON AFRICAN AMERICAN > 90 mL/min (90-120)
[2021-01-27 12:15] LABS: ALKALINE PHOSPHATASE 68 U/L (30-120); ALT (SGPT) 30 U/L (10-68); BILIRUBIN - TOTAL 0.42 mg/dL (0.2-1.3); PROTEIN - SERUM 7.6 g/dL (6.4-8.2)
--- NOTE | 2021-01-27 12:31 | NUR ---
WARM BLANKET X 2 TO PT.
--- NOTE | 2021-01-27 19:18 | NUR ---
PT REPORT GIVEN TO SUNI NEVILLE
[2021-01-27 20:53] VITALS: Ht 172.7 cm; Wt 60.0 kg
--- NOTE | 2021-01-28 10:30 | NUR ---
RCRICHELLE TC FROM [facility] REPORTING POSITIVE BC: GRAM POSITIVE COCCI IN [address] HAMMONDS PAGED
--- NOTE | 2021-01-28 10:49 | NUR ---
DR HAMMONDS CALLED BACK. INFORMED OF + BC. DR HAMMONDS STATES "PROBABLY CONTAMINATED WILL WAIT FOR FINAL REPORT"
== END 2021-01-27 22:49 | disposition home or self-care (01) ==
LOC: D.ER 08:02 → D.EDHOLD 13:04 → OBSVTIME 13:04 → D.M2 17:19
PROVIDERS: Family Medicine; ADMIT Family Medicine; ATTEND Family Medicine
DX: K94.23 Gastrostomy malfunction (principal); Z85.89 Personal history of malignant neoplasm of other organs and systems